=== PATIENT | male | born 1970 | race Caucasian/White ===

== ENCOUNTER 2021-10-08 18:44 | Inpatient (IN) | payer MEDICAID ==
[~2021-10-08] VITALS: Ht 170.2 cm; Wt 63.0 kg
[2021-10-08] MEDS ORDERED: LORazepam 2 MG/ML VIAL ONE (21:05)
[2021-10-08] MEDS ORDERED: HALOPERIDOL LACTATE 5 MG/ML VIAL ONE (21:05)
[2021-10-08] MEDS ORDERED: DiphenhydrAMINE HCL 50 MG/ML VIAL ONE (21:05)
[2021-10-08 21:15] VITALS: BP 121/68
[2021-10-08] MEDS ORDERED: DiphenhydrAMINE HCL 50 MG/ML VIAL IM ONE (21:15)
[2021-10-08] MEDS ORDERED: HALOPERIDOL LACTATE 5 MG/ML VIAL IM ONE (21:15)
[2021-10-08] MEDS ORDERED: LORazepam 2 MG/ML VIAL IM ONE (21:15)
[2021-10-08] MEDS ORDERED: PARO-38 PO (21:17)
[2021-10-08] MEDS ORDERED: LEVO100 PO (21:17)
[2021-10-08 21:36] VITALS: BP 121/68
[2021-10-08] MEDS ORDERED: HALOPERIDOL 5 MG TABLET PO PRN (21:45)
[2021-10-08] MEDS ORDERED: LORazepam 2 MG TABLET PO PRN (21:45)
[2021-10-08] MEDS ORDERED: ZOLPIDEM TARTRATE 10 MG TABLET PO PRN (21:45)
[2021-10-09] MEDS ORDERED: NICOTINE 14 MG/24 HOUR PATCH TD PRN (07:00)
[2021-10-09] MEDS ORDERED: ALBUTEROL SULFATE HFA 90 MCG/PUFF 8 GM INHALER IH PRN (07:00)
[2021-10-09] MEDS ORDERED: PETROLATUM,WHITE 28 GM JELLY TP PRN (07:00)
[2021-10-09] MEDS ORDERED: ONDANSETRON HCL 4 MG TABLET PO PRN (07:00)
[2021-10-09] MEDS ORDERED: IBUPROFEN 400 MG TABLET PO PRN (07:00)
[2021-10-09] MEDS ORDERED: MAGNESIUM HYDROXIDE SUSPENSION 30 ML UDCUP PO PRN (07:00)
[2021-10-09] MEDS ORDERED: MAG HYDROX/AL HYDROX/SIMETH ES 30 ML SUSPENSION UDCUP PO PRN (07:00)
[2021-10-09] MEDS ORDERED: CloNIDine HCL 0.1 MG TABLET PO PRN (07:00)
[2021-10-09] MEDS ORDERED: ACETAMINOPHEN 325 MG TABLET PO PRN (07:00)
[2021-10-09] MEDS ORDERED: LOPERAMIDE HCL 2 MG CAPSULE PO PRN (07:00)
[2021-10-09] MEDS ORDERED: DOCUSATE SODIUM 100 MG CAPSULE PO PRN (07:00)
[2021-10-09] MEDS ORDERED: GuaiFENesin/D-METHORPHAN [SUGAR-FREE] 200-20MG/10 ML SYRUP UDCUP PO PRN (07:00)
[2021-10-09] MEDS: PARoxetine HCL 20 MG TABLET PO SCH (13:07)
[2021-10-09 19:05] VITALS: BP 116/76
[2021-10-09] MEDS: QUEtiapine FUMARATE 100 MG TABLET PO SCH (19:42)
[2021-10-09] MEDS ORDERED: INFLUENZA VIRUS VACCINE QVS 2021-22 (6MO+)/PF 60 MCG/0.5 ML SYRINGE IM. ONE (19:45)
[2021-10-10] MEDS: LEVOTHYROXINE SODIUM 100 MCG TABLET PO SCH (06:32)
[2021-10-10] MEDS: QUEtiapine FUMARATE 100 MG TABLET PO SCH ×2 (08:56→16:58)
[2021-10-10] MEDS: PARoxetine HCL 20 MG TABLET PO SCH (08:56)
[2021-10-10 09:41] VITALS: BP 117/66
[2021-10-10 16:20] VITALS: BP 111/69
[2021-10-11] MEDS: LEVOTHYROXINE SODIUM 100 MCG TABLET PO SCH (06:30)
[2021-10-11] MEDS: PARoxetine HCL 20 MG TABLET PO SCH (08:55)
[2021-10-11] MEDS: QUEtiapine FUMARATE 100 MG TABLET PO SCH (08:57)
[2021-10-11] MEDS ORDERED: QUET200T PO (10:56)
[2021-10-11] MEDS ORDERED: QUET100T34 PO (11:42)
[2021-10-11] MEDS ORDERED: PARO-37 PO (11:42)
== END 2021-10-11 11:10 | disposition left against medical advice (07) | DRG 751 ==
LOC: B2X 20:40 → B2S 21:07 → UNDODISIN 10-10 13:30
PROVIDERS: ADMIT Psychiatry & Neurology Child & Adolescent Psychiatry; ATTEND Psychiatry & Neurology Child & Adolescent Psychiatry
DX: F33.2 Major depressive disorder, recurrent severe without psychotic features (principal); E03.9 Hypothyroidism, unspecified; F10.10 Alcohol abuse, uncomplicated; Z79.899 Other long term (current) drug therapy; Z20.822 Contact with and (suspected) exposure to COVID-19
CPT/HCPCS: J1200; J1630; J2060